=== PATIENT | female | born 1990 | race Caucasian/White ===

== ENCOUNTER → 2021-04-04 | Outpatient (CLI) | payer OTHER ==
--- NOTE | 2021-04-05 08:22 | US ---
EXAMINATION TYPE: US OB >= 14 wk fetus DATE OF EXAM: 04/04/2021 COMPARISON: None CLINICAL HISTORY: Z36 CONFIRM DATES confirm dates TECHNIQUE: Transabdominal (TA) GESTATIONAL AGE / DATING Physician Established: Not yet established Dates by LMP: LMP unknown Dates by First Scan: No previous this is first scan Dates by Current Scan: (26 weeks/5 days) EDC: 07/06/21 SURVEY IUP: Single PLACENTA: Posterior PREVIA: No Previa BRITTNEY: 12.5 cm Normal CERVICAL LENGTH (transabdominal: norm > 3.0cm): 4.4 cm BIOMETRY PRESENTATION: Variable BPD: 6.5 cm 26 weeks / 1 days HC: 25.2 cm 27 weeks / 3 days AC: 20.9 cm 25 weeks / 4 days FL: 5.1 cm 27 weeks / 3 days ESTIMATED WEIGHT IN GRAMS: 924 grams ESTIMATED WEIGHT IN LBS/OZ: 2 lbs. 1 oz. HC/AC: 1.21 Normal FL/AC: 24% Normal HEART RATE: 135 bpm RHYTHM: Normal IMPRESSION: 1. Single intrauterine with an average ultrasound gestational age of 26 weeks and 5 days. F etal heart rate is 135 bpm. Please see measurements above. 2. Amniotic fluid index is 12.5 cm.
== END | disposition home or self-care (01) ==
LOC: RADUSWWP 16:26
PROVIDERS: ATTEND Obstetrics & Gynecology
DX: Z36.87 Encounter for antenatal screening for uncertain dates (principal)
CPT/HCPCS: 76805

== ENCOUNTER 2021-06-08 18:05 | Outpatient (CLI) | payer OTHER ==
[2021-06-08 19:02] VITALS: BP 112/69; PULSE 95; RESP 16; TEMP 97.3
--- NOTE | 2021-06-08 19:09 | US ---
EXAMINATION TYPE: US OB >= 14 wk fetus DATE OF EXAM: 06/08/2021 COMPARISON: US 04/04/2021 CLINICAL HISTORY: BRITTNEY, EFW TECHNIQUE: Transabdominal (TA) GESTATIONAL AGE / DATING Physician Established: (36 weeks/0 days) EDC: 07/06/2021 Dates by LMP: (36 weeks/0 days) EDC: 07/06/2021 Dates by First Scan: (36 weeks/0 days) EDC: 07/06/2021 Dates by Current Scan: (35 weeks/0 days) EDC: 07/13/2021 SURVEY IUP: Single PLACENTA: Posterior PREVIA: No Previa BRITTNEY: 17.4 cm Normal CERVICAL LENGTH (transabdominal: norm > 3.0cm): 3.3 cm BIOMETRY PRESENTATION: Vertex LIE: Longitudinal BPD: 8.3 cm 33 weeks / 2 days HC: 32.2 cm 36 weeks / 3 days AC: 30.1 cm 34 weeks / 1 days FL: 6.95 cm 36 weeks / 0 days ESTIMATED WEIGHT IN GRAMS: 2483 grams ESTIMATED WEIGHT IN LBS/OZ: 5 lbs. 8 oz. WEIGHT PERCENTAGE BASED ON ESTABLISHED DATES: 18% HC/AC: 1.07 Normal FL/AC: 23% Normal HEART RATE: 136 bpm RHYTHM: Normal Viable IUP, measurements consistent with dates. IMPRESSION: There is satisfactory growth compared to old exam of 03/27/2021. No complicating pro cess seen.
--- NOTE | 2021-06-10 12:34 | P.MSEPDOC ---
Presenting Problems - Arrival Data Date of Arrival on Unit: 06/08/21 Time of Arrival on Unit: 18:05 Mode of Transport: Portable - Complaint OB-Reason for Admission/Chief Complaint: NST, Other Comment: ultrasound for EFW and BRITTNEY Medical History - Information : 2 Para: 1 Term: 1 : 0 Abortions: Spontaneous or Elective: 0 Number of Living Children: 1 - Gestational Age Gestational Age by GREG (wks/days): 36 Weeks and 0 Days Review of Systems - Review of Systems Constitutional: No problems Breast: No problems ENT: No problems Cardiovascular: No problems Respiratory: No problems Gastrointestinal: No problems Genitourinary: No problems Musculoskeletal: No problems Neurological: No problems Skin: No problems Vital Signs - Temperature Temperature: 97.3 F Temperature Source: Temporal Artery Scan - Pulse Right Sitting Pulse Rate: 95 Pulse Assessment Method: Automatic Cuff - Respirations Respiratory Rate: 16 Oxygen Delivery Method: Room Air - Blood Pressure Right Arm Sitting Blood Pressure: 112/69 Blood Pressure Mean: 83 Blood Pressure Source: Automatic Cuff Medical Screen Scoring - Cervical Exam Membranes: Intact - Uterine Contractions Resting: Soft to palpation - Assessment - Baby A Baseline FHR: 125 Heart Rate - NICHD Category: Category I (Normal) NST: Reactive Physician Notification - Physician Notified Physician Notified Date: 06/08/21 Physician Notified Time: 18:45 Physician: Anisa Keita Order Received: Yes Maternal Triage Index - Maternal Triage Index Presenting for scheduled procedure w/no complaint: Yes - Scheduled/Requesting Priority 5 Scheduled/Requesting Priority 5: Yes Criteria Met for Priority 5: Ultrasound for EFW and BRITTNEY Disposition - Disposition OB Disposition: Discharge to home Transferred to:: home Discharge Date: 06/08/21 Discharge Time: 19:00 I agree with the RN Medical Screening Exam: Yes Case reviewed; plan agreed upon as documented in EMR&OBIX.: Yes Diagnosis: ENCTR FOR SCREENING FOR GROWTH RETARDATION
== END 2021-06-08 19:00 | disposition home or self-care (01) ==
LOC: FBPOP 18:05
PROVIDERS: ATTEND Obstetrics & Gynecology
DX: O41.00X3 Oligohydramnios, unspecified trimester, fetus 3 (principal); Z3A.35 35 weeks gestation of pregnancy
CPT/HCPCS: 59025; 76805

== ENCOUNTER 2021-07-09 06:00 | Inpatient (IN) | payer OTHER ==
[2021-07-09] MEDS ORDERED: CARBOPROST TROMETHAMINE 250 MCG/ML 1 ML AMP IM PRN (08:03)
[2021-07-09] MEDS ORDERED: OXYTOCIN 10 UNIT/ML 1 ML VIAL IM PRN (08:03)
[2021-07-09] MEDS ORDERED: METHYLERGONOVINE 0.2 MG/ML 1 ML AMP IM PRN (08:03)
[2021-07-09] MEDS ORDERED: LIDOCAINE 0.5% (PF) 5 MG/ML (50 ML SDV) SQ PRN (08:03)
[2021-07-09] MEDS ORDERED: TERBUTALINE 1 MG/ML VIAL SQ PRN (08:03)
[2021-07-09] MEDS: LACTATED RINGERS 1,000 ML IV SCH ×2 (08:10→13:36)
[2021-07-09] MEDS ORDERED: OXYTOCIN 30 UNITS/500 ML NS 30 UNIT in SALINE 1 500ML.BAG IV SCH (08:15)
[2021-07-09 08:20] LABS: Basophils % (A) 0 %; Eosinophils # (A) 0.2 k/uL (0-0.7); Eosinophils % (A) 1 %; HCT 35.6 % (34.0-46.0); HGB 11.8 gm/dL (11.4-16.0); Lymphocytes # (A) 2.2 k/uL (1.0-4.8); Lymphocytes % (A) 19 %; MCH 30.1 pg (25.0-35.0); MCHC 33.2 g/dL (31.0-37.0); MCV 90.7 fL (80.0-100.0); Mean Platelet Volume 7.9; Monocytes # (A) 0.5 k/uL (0-1.0); Monocytes % (A) 4 %; Neutrophils # (A) 8.8 k/uL (1.3-7.7); Neutrophils % (A) 75 %; Platelet Count 232 k/uL (150-450); Poikilocytosis Slight; RBC 3.92 m/uL (3.80-5.40); RDW 13.4 % (11.5-15.5); WBC 11.8 k/uL (3.8-10.6)
[2021-07-09] MEDS ORDERED: BUTORPHANOL 1 MG/ML 1 ML VIAL IV PRN (11:48)
[2021-07-09] MEDS ORDERED: SODIUM CHLORIDE 0.9% 100 ML BAG ONE (13:40)
[2021-07-09] MEDS ORDERED: fentaNYL (PF) 50 MCG/ML 5 ML AMP ONE (13:40)
[2021-07-09] MEDS ORDERED: ROPIVACAINE 5MG/ML 20ML VIAL ONE (13:40)
[2021-07-09] MEDS ORDERED: ZOLPIDEM 5 MG TAB PO PRN (15:23)
[2021-07-09] MEDS ORDERED: BENZOCAINE/MENTHOL SPRAY 1 GM/SPRAY AEROSOL TOPICAL PRN (15:23)
[2021-07-09] MEDS ORDERED: diphenhydrAMINE 50 MG/ML 1 ML VIAL IVP PRN ×2 (15:23)
[2021-07-09] MEDS ORDERED: SIMETHICONE 80 MG CHEWABLE PO PRN (15:23)
[2021-07-09] MEDS ORDERED: LANOLIN CREAM 5 GM TUBE TOPICAL PRN (15:23)
[2021-07-09] MEDS ORDERED: HYDROCORTISONE 2.5% RECTAL CREAM 30 GM TUBE RECTAL PRN (15:23)
[2021-07-09] MEDS ORDERED: diphenhydrAMINE 50 MG CAP PO PRN (15:23)
[2021-07-09] MEDS ORDERED: ACETAMINOPHEN TAB 325 MG TAB PO PRN (15:23)
[2021-07-09] MEDS ORDERED: diphenhydrAMINE 25 MG CAP PO PRN (15:23)
--- NOTE | 2021-07-09 15:25 | P.HPOB ---
History of Present Illness H&P Date: 07/09/21 Chief Complaint: Uterine term: Induction of labor Patient is a 31-year-old at 39 weeks 6 days gestation arise for induction of labor. Her course was, complicated by small for dates but never below the 15th or 16th percentile and overall she did well. She did not do her one-hour Glucola screens weight HEENT: A1c was done that was normal. Groupie strep is negative. Pertinent labs include A+ blood type, Rh and it was negative, rubella is immune hepatitis B surface antigen and HIV were negative. She is doing very well this time and understands risks of induction. Pitocin augmentation of labor as planned. She is dilated 2-3 cm 80% effaced -2 station clear fluid is noted at the time of artificial rupture membranes and we have a category 1 tracing. Past Medical History Past Medical History: No Reported History History of Any Multi-Drug Resistant Organisms: None Reported Additional Past Surgical History / Comment(s): right eye surgery Past Anesthesia/Blood Transfusion Reactions: No Reported Reaction Past Psychological History: No Psychological Hx Reported Smoking Status: Never smoker Past Alcohol Use History: None Reported Past Drug Use History: None Reported - Past Family History Mother Family Medical History: No Reported History Medications and Allergies Home Medications Medication Instructions Recorded Confirmed Type Pnv No.95/Ferrous Fum/Folic AC 1 each PO DAILY 07/09/21 07/09/21 History [ Multivitamin Tablet] Allergies Allergy/AdvReac Type Severity Reaction Status Date / Time No Known Allergies Allergy Verified 07/09/21 08:02 Exam Osteopathic Statement: *. No significant issues noted on an osteopathic st ructural exam other than those noted in the History and Physical/Consult. Vital Signs Temp Pulse Resp BP 07/09/21 08:17 97.3 F L 102 H 18 121/79 Intake and Output 07/09/21 07/09/21 07/09/21 06:59 14:59 22:59 Intake Total 1000 Balance 1000 Intake: IV 1000 Other: # Voids 1 Weight 64.864 kg - OBG Physical Exam Breast: both: normal (no masses) Abdomen: bowel sounds normal, no diffuse tenderness, no bruit present, no guarding noted, no hepatomegaly, no splenomegaly, no mass Vulva: both: normal Vagina: normal moisture, no discharge Cervix: no lesion, no discharge Uterus: normal size, normal contour Adnexa: both: normal Anus/Rectum: normal perianal skin, no rectal mass, no hemorrhoids, heme negative Results Result Diagrams: 07/09/21 08:05 Abnormal Lab Results - Last 24 Hours (Table) 07/09/21 Range/Units 08:05 WBC 11.8 H (3.8-10.6) k/uL Neutrophils # 8.8 H (1.3-7.7) k/uL
--- NOTE | 2021-07-09 15:26 | P.PROBDLV ---
Vaginal Delivery Note - . Vaginal Delivery Note: Patient progressed complete and pushing and had spontaneous vaginal delivery of a viable female over an intact perineum. Falling deliver the head no nuchal cord is noted despite multiple variable decelerations that stopped the go back until she was approximately even 5 cm dilated. Very well decelerations last anywhere from 1-2 minutes during the pushing phase. Return to baseline following the contraction. Baseline was in the 120s to 130s and decelerations usually went down into the 90s. Excellent [id number] variability between however. Once baby's head was delivered from straight OA position baby rest to to TREVA and was easily delivered with gentle downward upper traction followed by the remainder the baby. Mouth nares were then bulb suctioned baby was placed mother's abdomen with the umbilical cord was allowed to pulsate for 30 seconds prior to clamping and cutting. Placenta was then delivered intact with nursery personnel assuming care. Pitocin was added to the IV. scores are 8 and 9 at one and 5 minutes respectively. Weight is pending at this time. Both mother and baby are however stable at this time.
[2021-07-09] MEDS: IBUPROFEN 600 MG TAB PO SCH ×2 (15:56→21:35)
[2021-07-09] MEDS: SENNOSIDES-DOCUSATE SODIUM 1 EACH TAB PO SCH (20:26)
[2021-07-10] MEDS: IBUPROFEN 600 MG TAB PO SCH (02:57)
[2021-07-10 07:53] VITALS: BP 103/66; PULSE 69; RESP 16; TEMP 98.5
[2021-07-10] MEDS: SENNOSIDES-DOCUSATE SODIUM 1 EACH TAB PO SCH (07:54)
--- NOTE | 2021-07-10 08:46 | P.DS ---
Providers Date of admission: 07/09/21 07:53 Expected date of discharge: 07/10/21 Attending physician: Fadi Lopez Primary care physician: Stated None Hospital Course: Patient is doing very well day 1. She is involuting, voiding and tolerating her diet. She voices no complaints. Vital signs are stable and afebrile. Heart regular, lungs clear, extremities without pain. Abdomen soft and uterus is firm. Lochia is reported light. We'll plan discharged home today. Prescription for Motrin is for is a pharmacy. All questions are answered for her discharge instructions were thoroughly reviewed. She is stable for discharge this time. Patient Condition at Discharge: Good Plan - Discharge Summary New Discharge Prescriptions: New Ibuprofen [Motrin] 600 mg PO Q6HR PRN #30 tab PRN Reason: Pain No Action Pnv No.95/Ferrous Fum/Folic AC [ Multivitamin Tablet] 1 each PO DAILY Discharge Medication List Pnv No.95/Ferrous Fum/Folic AC [ Multivitamin Tablet] 1 each PO DAILY 07/09/21 [History] Ibuprofen [Motrin] 600 mg PO Q6HR PRN #30 tab 07/10/21 [Rx] Follow up Appointment(s)/Referral(s): Fadi Lopez DO [Doctor of Osteopathic Medicine] - 6 Weeks Activity/Diet/Wound Care/Special Instructions: No heavy Lifting, limit stairs and driving, and pelvic rest. If any high temperatures, heavy bleeding, or severe pain call my office Discharge Disposition: HOME SELF-CARE
== END 2021-07-10 15:45 | disposition home or self-care (01) | DRG 807 ==
LOC: 4FBP 07:53
PROVIDERS: ADMIT Obstetrics & Gynecology; ATTEND Obstetrics & Gynecology
DX: O36.5930 Maternal care for other known or suspected poor fetal growth, third trimester, not applicable or unspecified (principal); Z37.0 Single live birth; O76 Abnormality in fetal heart rate and rhythm complicating labor and delivery; P05.19 Newborn small for gestational age, other; Z3A.39 39 weeks gestation of pregnancy
CPT/HCPCS: 85025; 86850; 86900; 86901